=== PATIENT | male | born 1960 | race Caucasian/White ===

== ENCOUNTER → 2017-01-01 | Outpatient (CLI) | payer BC ==
[~2017-01-01] MED LIST: IOPAMIDOL (ISOVUE-300) 100 ML BTL IV ONE
--- NOTE | 2017-01-01 14:22 | CT ---
CT Scan of the Abdomen and Pelvis (With Contrast) Indication: Pain. Suspect perianal abscess. Technique: No oral or rectal contrast. 90 mL of Isovue 300 were given intravenously by machine power injection. Multidetector helical CT imaging was performed from the diaphragm to the symphysis pubis . Dose reduction techniques were utilized. Comparison: CT abdomen and pelvis dated October 14, 2015 Findings: The perianal low attenuation fluid collection with peripheral rim enhancement is draped acr oss the anterior aspect of the anal canal in a horseshoe configuration. The collection measures 4.5 c m medial to lateral x 1 cm AP x 2 cm craniocaudal. The locule has a similar configuration to the [place] heidi 2014 study. No collection along the posterosuperior aspect of the anal canal as on the prior luca dy. Several tiny subcutaneous gas bubbles are present in the left paramedian fascial fat inferior to the collection. The collection resides approximately 3 cm deep to the skin and the gas bubbles extend to 2 cm deep to the skin. A catheter is situated within the urinary bladder. The prostate gland is normal size. No intraprostat ic fluid collection. No free fluid, mesenteric edema, intraperitoneal collection or mass. Bowel pattern is normal, with the exception of scattered diverticula throughout the descending and si gmoid colon and right-sided constipation. The appendix is normal. The liver, spleen, pancreas, gallbladder, adrenal glands, and kidneys are normal. No nephrolithiasis or hydroureteronephrosis. Lung bases are clear. Benign linear atelectasis in the lingula is new. The abdominal aorta is normal caliber with minimal calcified plaque. Fusion hardware in the low lumbar spine extending from L3 to L 4 is new since 2014, and is well seated. Impression: 1. Small perianal fluid collection, likely abscess. The collection is smaller than on the October 13 evaluation. 2. No intraperitoneal abscess or inflammatory process. 3. Diverticulosis of the sigmoid colon. No evidence of enteritis. Comment: Results were discussed with Dr. Joan Kennedy shortly after study completion.
== END ==
LOC: FIMAGING 12:39
PROVIDERS: ATTEND Surgery
DX: K62.89 Other specified diseases of anus and rectum (principal); K57.30 Diverticulosis of large intestine without perforation or abscess without bleeding
CPT/HCPCS: Q9967

== ENCOUNTER 2017-05-13 05:30 | Day surgery (SDC) | payer BC ==
[2017-05-13] MEDS ORDERED: LIDOCAINE 1% 2 ML INJ ID PRN (05:42)
[2017-05-13] MEDS ORDERED: LR 1,000 ML IV ONE (05:42)
[2017-05-13] MEDS ORDERED: METHYLENE BLUE 0.5% 50 MG/10 ML AMP ONE (06:42)
[2017-05-13] MEDS ORDERED: BUPIVACAINE/EPI 0.5% 30 ML SDV ONE (06:42)
[2017-05-13] MEDS ORDERED: MIDAZOLAM 2 MG/2 ML VIAL IVP ONE (06:52)
--- NOTE | 2017-05-13 06:55 | PDANEPAE ---
ANE History of Present Illness 56 year old male with JARRED on CPAP and 2 L O2 nightly. Denies any issues with heart, hypertension, asthma, diabetes, or thyroid. ANE Past Medical History - Cardiovascular History Hx Hypertension: No Hx Arrhythmias: No Hx Chest Pain: No Hx Coronary Artery / Peripheral Vascular Disease: No Hx CHF / Valvular Disease: No Hx Palpitations: No - Pulmonary History Hx COPD: No Hx Asthma/Reactive Airway Disease: No Hx Recent Upper Respiratory Infection: No Hx Oxygen in Use at Home: Yes - Neurologic History Hx Cerebrovascular Accident: No Hx Seizures: No Hx Dementia: No - Endocrine History Hx Diabetes: No - Renal History Hx Renal Disorders: Yes - Liver History Hx Hepatic Disorders: No - Neurological & Psychiatric Hx Hx Neurological and Psychiatric Disorders: No - Cancer History Hx Cancer: No - Congenital Disorder History Hx Congenital Disorders: No - GI History Hx Gastrointestinal Disorders: No - Chronic Pain History Chronic Pain: Yes (RECTAL) ANE Review of Systems - Exercise capacity METS (RN): 6 METS ANE Patient History - Allergies Allergies/Adverse Reactions: No Known Allergies Allergy (Unverified 10/14/15 14:42) - Home Medications Home Medications: Tamsulosin HCl DAILY06 10/14/15 [Last Taken Unknown] Tylenol PO PRN 10/14/15 [Last Taken Unknown] Lumigan 0.01% (*) HS 05/02/17 [Last Taken Unknown] - NPO status NPO Since - Liquids (Date): 05/12/17 NPO Since - Liquids (Time): 20:00 NPO Since - Solids (Date): 05/12/17 NPO Since - Solids (Time): 20:00 - Smoking Hx Smoking Status: Never smoked ANE Labs/Vital Signs - Vital Signs Blood Pressure: 117/83 Heart Rate: 73 Respiratory Rate: 16 O2 Sat (%): 92 Height: 177.8 cm Weight: 92.986 kg ANE Physical Exam - Airway Neck exam: FROM Mallampati Score: Class 1 Mouth exam: normal dental/mouth exam - Pulmonary Pulmonary: no respiratory distress - Cardiovascular Cardiovascular: regular rate and rhythym - ASA Status ASA Status: II ANE Anesthesia Plan Urgent/Emergent Case: Modesta wu completed preop but documented later for safe timely pt care
[2017-05-13] MEDS ORDERED: SCOPOLAMINE HYDROBROMIDE 1.5 MG PATCH TD SCH (07:00)
[2017-05-13] MEDS ORDERED: ROCURONIUM 50 MG/5 ML VIAL ONE (07:00)
[2017-05-13] MEDS ORDERED: PROPOFOL 200 MG/20 ML VIAL ONE (07:00)
[2017-05-13] MEDS ORDERED: fentaNYL 100 MCG/2 ML INJ ONE (07:01)
[2017-05-13] MEDS ORDERED: SCOPOLAMINE HYDROBROMIDE 1.5 MG PATCH TD ONE (07:02)
[2017-05-13] MEDS ORDERED: KETAMINE 100 MG/10 ML SYR ONE (07:17)
[2017-05-13] MEDS ORDERED: PROPOFOL/EMULSION 500 MG/50 ML BOTTLE IV ONE (07:17)
[2017-05-13] MEDS ORDERED: cefOXitin SODIUM 2 GM in D5W 100 ML IV ONE (07:20)
--- NOTE | 2017-05-13 07:21 | PDHPUP ---
History & Physical Update H&P update statement: This history and physical update is based on an assessment of the patient which was completed after admission or registration (within 24 hours), but prior to the surgery/procedure. H&P update: H&P reviewed & patient examined, no change in patient's condition since H&P completed
[2017-05-13] MEDS ORDERED: LIDOCAINE 1% 300 MG/30 ML SDV ONE (07:56)
[2017-05-13] MEDS ORDERED: NALOXONE HCL 0.4 MG/ML INJ IVP PRN (08:13)
[2017-05-13] MEDS ORDERED: MEPERIDINE 25 MG/ML SYR IVP PRN (08:13)
[2017-05-13] MEDS ORDERED: LR 500 ML IV PRN (08:13)
[2017-05-13] MEDS ORDERED: ONDANSETRON 4 MG/2 ML VIAL IVP PRN (08:13)
[2017-05-13] MEDS ORDERED: OXYCODONE/APAP 5/325 TAB PO PRN (08:13)
[2017-05-13] MEDS ORDERED: DEXAMETHASONE 4 MG/ML VIAL IVP PRN (08:13)
[2017-05-13] MEDS ORDERED: HYDROmorphONE/DILAUDID 1 MG/ML SYR IVP PRN (08:13)
[2017-05-13] MEDS ORDERED: fentaNYL 100 MCG/2 ML INJ IVP PRN (08:13)
--- NOTE | 2017-05-13 08:49 | POSTANESTH ---
Post Anesthetic Evaluation Cardiovascular Status: Normal, Stable Respiratory Status: Normal, Stable Level of Consciousness/Mental Status: Can Participate in Eval Pain Control: Adequate, Prn Tx Ordered Nausea/Vomiting Control: Adequate, Prn Tx Ordered Complications Possibly Related to Anesthesia: None Noted
--- NOTE | 2017-05-13 08:50 | POSTOPPROG ---
Post Op Note Date of Operation: 05/13/17 Surgeon: Pepito Saldana Anesthesiologist: Dr. Ayoub Anesthesia: IV Sedation Pre-op Diagnosis: Recurrent perianal abscess Post-op Diagnosis: same Procedure: REUA, debridement Findings: No fistula identified Inf/Abcess present in the surg proc area at time of surgery?: Yes Depth: Superfical (Skin SQ) EBL: Minimal
[2017-05-13 10:01] VITALS: RESP 16; TEMP 98.1; O2SAT 94
[2017-05-13 10:25] VITALS: BP 118/79; PULSE 57
--- NOTE | 2017-05-13 14:46 | GOP ---
[f rep st] OPERATIVE REPORT DATE OF OPERATION: 05/13/2017 SURGEON: Jace Saldana MD ANESTHESIA: Monitored anesthetic care. ANESTHESIOLOGIST: Dr. Grewal. PREOPERATIVE DIAGNOSIS: Recurrent perianal abscess. POSTOPERATIVE DIAGNOSIS: Recurrent perianal abscess. PROCEDURE PERFORMED: 1. Rectal exam under anesthesia. 2. Debridement of abscess cavity. FINDINGS: No fistula tract was identified. There was a significant amount of fibrinous and granula ting tissue in the left anterior aspect of the perianal area. ESTIMATED BLOOD LOSS: 20 cc. INDICATIONS: This is a 56-year-old male with a history of recurrent perianal abscess. Risks and be nefits of the procedure were discussed with the patient and his family, their questions were answere d, they wished to proceed. DESCRIPTION OF PROCEDURE: Patient was in the supine position initially. After induction of adequat e IV sedation, the patient was moved to the modified lithotomy position and then prepped and draped in standard surgical fashion. Digital rectal exam was performed and the anus was then serially dila dalton. Endoscope was placed and the anus and distal rectum were inspected. There were multiple tags, but no opening for fistula tract was identified. Next, the area of the recurrent abscess was palpa dalton in the left anterior aspect of the perianal area. There was some firmness in this area but, aga in, no tract was identified. The area was then anesthetized with 1% lidocaine and 0.5% Marcaine. A n elliptical incision was made with a #15 blade and carried down to subcutaneous tissue with a sharp dissection. The area was palpated and lacrimal duct probe used to gently probe the area. Once aga in, no fistula tract was identified. There was, however, a significant amount of fibrinous and gran ulated tissue. This was excised sharply. The area was again palpated and found to be without furth er lesions. The area was thoroughly irrigated and aspirated. Hemostasis was achieved with cautery. Decision was made to leave the incision open due to the history of infection. It was, therefore, packed. Sterile dressing was applied over this. The patient was then returned to a supine position and taken to PACU in stable condition. COMPLICATIONS: None. DRAINS: Include packing. /[id number]/MODL
[2017-05-14] MEDS ORDERED: PATCH REMOVAL 1 EA PATCH TD ONE (06:52)
== END 2017-05-13 10:25 | disposition home or self-care (01) ==
LOC: FSGY 05:30
PROVIDERS: ATTEND Surgery
PROC: 0D9Q0ZZ Drainage of Anus, Open Approach (ICD-10-PCS; principal; 2017-05-13 07:30)
PROC: 0DJD8ZZ Inspection of Lower Intestinal Tract, Via Natural or Artificial Opening Endoscopic (ICD-10-PCS; principal; 2017-05-13 07:30)
DX: K61.0 Anal abscess (principal); G47.33 Obstructive sleep apnea (adult) (pediatric)
CPT/HCPCS: J0694; J2250; J2704; J3010; Q9968

== ENCOUNTER → 2018-03-03 | Outpatient (CLI) | payer BC | LOC: FIMAGING 15:28 | PROVIDERS: ATTEND Surgery | DX: K61.0 Anal abscess (principal) ==

== ENCOUNTER 2018-09-25 17:24 | Day surgery (SDC) | payer BC ==
[2018-09-25] MEDS ORDERED: LR 1,000 ML IV ONE (17:34)
[2018-09-25] MEDS ORDERED: LIDOCAINE 1% 2 ML INJ ID PRN (17:34)
[2018-09-25] MEDS ORDERED: MIDAZOLAM 2 MG/2 ML VIAL IVP ONE (20:43)
--- NOTE | 2018-09-25 20:45 | PDANEPAE ---
ANE History of Present Illness perirectal abscess ANE Past Medical History - Cardiovascular History Hx Hypertension: No Hx Arrhythmias: No Hx Chest Pain: No Hx Coronary Artery / Peripheral Vascular Disease: No Hx CHF / Valvular Disease: No Hx Palpitations: No - Pulmonary History Hx COPD: No Hx Asthma/Reactive Airway Disease: No Hx Recent Upper Respiratory Infection: No Hx Oxygen in Use at Home: Yes Hx Sleep Apnea: Yes Sleep Apnea Screening Result - Last Documented: Positive Pulmonary History Comment: JARRED USES C-PAP INSTRUCTED TO BRING DOS - Neurologic History Hx Cerebrovascular Accident: No Hx Seizures: No Hx Dementia: No - Endocrine History Hx Diabetes: No - Renal History Hx Renal Disorders: Yes Renal History Comment: NOCTURIA. BPH - Liver History Hx Hepatic Disorders: No - Neurological & Psychiatric Hx Hx Neurological and Psychiatric Disorders: No - Cancer History Hx Cancer: Yes Cancer History Comment: new diagnosis of prostate CA. not treated at this time. - Congenital Disorder History Hx Congenital Disorders: No - GI History Hx Gastrointestinal Disorders: No Gastrointestinal History Comment: ADIEL RECTAL ABCESS X3 OVER THE PAST YEAR LAST 03/2017. Anal fissure 10 yrs ago. - Other Health History Other Health History: GLAUCOMA - Chronic Pain History Chronic Pain: Yes (RECTAL) - Surgical History Prior Surgeries: Previous perirectal abcess I&D. LUMBAR FUSION 03/2016. RT RTC 2014. Tonsillectomy as a child ANE Review of Systems Review of systems is: negative Review of Systems: - Exercise capacity METS (RN): 4 METS ANE Patient History - Allergies Allergies/Adverse Reactions: No Known Allergies Allergy (Unverified 10/14/15 14:42) - Home Medications Home medications: home medication list seen and reviewed Home Medications: Tamsulosin HCl DAILY06 10/14/15 [Last Taken 09/25/18] Tylenol PO PRN 10/14/15 [Last Taken 09/25/18] Lumigan 0.01% (*) HS 05/02/17 [Last Taken 09/24/18] Gabapentin 09/25/18 [Last Taken 09/25/18] - NPO status NPO Status: no food or drink >8 hours NPO Since - Liquids (Date): 09/25/18 NPO Since - Liquids (Time): 12:00 NPO Since - Solids (Date): 09/25/18 NPO Since - Solids (Time): 12:00 - Anes Hx Anes Hx: no prior problems - Smoking Hx Smoking Status: Never smoked - Family Anes Hx Family Anes Hx: none Family Hx Anesthesia Complications: NA ANE Labs/Vital Signs - Vital Signs Vital Signs: reviewed preoperatively; see RN documention for details Blood Pressure: 140/98 Heart Rate: 80 Respiratory Rate: 15 O2 Sat (%): 93 Height: 177.8 cm Weight: 95.254 kg ANE Physical Exam - Airway Neck exam: FROM Mallampati Score: Class 1 Mouth exam: normal dental/mouth exam - Pulmonary Pulmonary: no respiratory distress - Cardiovascular Cardiovascular: regular rate and rhythym - ASA Status ASA Status: II ANE Anesthesia Plan Anesthesia Plan: general endotracheal anesthesia
[2018-09-25] MEDS ORDERED: MIDAZOLAM 2 MG/2 ML VIAL ONE (20:46)
[2018-09-25] MEDS ORDERED: fentaNYL 100 MCG/2 ML INJ ONE (20:50)
[2018-09-25] MEDS ORDERED: ROCURONIUM 50 MG/5 ML VIAL ONE (20:50)
[2018-09-25] MEDS ORDERED: DEXAMETHASONE 4 MG/ML VIAL ONE (20:50)
[2018-09-25] MEDS ORDERED: PROPOFOL 200 MG/20 ML VIAL ONE (20:50)
[2018-09-25] MEDS ORDERED: ONDANSETRON 4 MG/2 ML VIAL ONE (20:50)
[2018-09-25] MEDS ORDERED: LIDOCAINE 2% 100 MG/5 ML SYR ONE (20:50)
[2018-09-25] MEDS ORDERED: SUGAMMADEX SODIUM 200 MG/2 ML VIAL IVP ONE (21:38)
[2018-09-25] MEDS ORDERED: KETOROLAC 30 MG/1 ML SDV ONE (21:40)
--- NOTE | 2018-09-25 21:51 | POSTOPPROG ---
Post Op Note Date of Operation: 09/25/18 Surgeon: Pepito Saldana Anesthesiologist: Dr. Burgess Anesthesia: GET(General Endotracheal) Pre-op Diagnosis: Perirectal abscess Post-op Diagnosis: same Procedure: I&D Inf/Abcess present in the surg proc area at time of surgery?: Yes Depth: Deep Incisional (Fascial) EBL: Minimal
[2018-09-25] MEDS ORDERED: ONDANSETRON 4 MG/2 ML VIAL IVP PRN (22:01)
[2018-09-25] MEDS ORDERED: oxyCODONE IR 5 MG TAB PO PRN (22:01)
[2018-09-25] MEDS ORDERED: DEXAMETHASONE 4 MG/ML VIAL IVP PRN (22:01)
[2018-09-25] MEDS ORDERED: HYDROmorphONE/DILAUDID 2 MG/ML INJ IVP PRN (22:01)
[2018-09-25] MEDS ORDERED: PROMETHAZINE HCL 25 MG/ML INJ IVP PRN (22:01)
[2018-09-25] MEDS ORDERED: MEPERIDINE 25 MG/0.5 ML AMP IVP PRN (22:01)
[2018-09-25] MEDS ORDERED: fentaNYL 100 MCG/2 ML INJ IVP PRN (22:01)
[2018-09-25] MEDS ORDERED: HYDROCODONE/APAP 5/325 TAB PO PRN (22:01)
[2018-09-25] MEDS ORDERED: ACETAMINOPHEN 500 MG TAB PO PRN (22:01)
[2018-09-25] MEDS ORDERED: NALOXONE HCL 0.4 MG/ML INJ IVP PRN (22:01)
--- NOTE | 2018-09-25 22:02 | POSTANESTH ---
Post Anesthetic Evaluation Cardiovascular Status: Normal, Stable, Similar to Pre-Op Cond Respiratory Status: Similar to Pre-op Cond. Level of Consciousness/Mental Status: Can Participate in Eval, Alert and Oriented Pain Control: Adequate, Prn Tx Ordered Nausea/Vomiting Control: Adequate, Prn Tx Ordered Complications Possibly Related to Anesthesia: None Noted
[2018-09-25] MEDS ORDERED: HYDROCODONE/APAP 5/325 TAB ONE (22:12)
[2018-09-25 22:52] VITALS: BP 129/84
--- NOTE | 2018-09-27 03:12 | GOP ---
DATE OF OPERATION: 09/25/2018 SURGEON: Jace Saldana MD ANESTHESIA: General endotracheal anesthesia. ANESTHESIOLOGIST: Dr. Burgess. PREOPERATIVE DIAGNOSIS: Perirectal abscess. POSTOPERATIVE DIAGNOSIS: Perirectal abscess. PROCEDURE PERFORMED: 1. Rectal exam under anesthesia. 2. Incision and drainage of perirectal abscess. FINDINGS: The patient had a 1.5 to 2 cm abscess in the anterior perirectal area. No evidence of fis mercedes was identified. No foreign body was identified. ESTIMATED BLOOD LOSS: 20 cc. INDICATIONS: This is a 58-year-old male with a history of recurrent perirectal abscess. Risks and b enefits of the procedure discussed with the patient's family, their questions were answered. They wi shed to proceed. DESCRIPTION OF PROCEDURE: Patient in the supine position initially. After induction of adequate gen eral endotracheal anesthesia, the patient was moved to the modified lithotomy position. He was then prepped and draped in standard surgical fashion. Digital rectal exam was performed. The anus was se rially dilated. An anoscope was placed, and the area of the anus and distal rectum carefully examine d. No evidence of fistula or other lesions was identified. Of note, patient did have some posterior hemorrhoids. The abscess was palpated in the anterior wall of the anus and rectum; 0.5% Marcaine wa s injected throughout the skin over the anterior area of the anus. An elliptical incision was made w ith #15 blade and carried down to the subcutaneous tissue with Bovie cautery and blunt dissection. T he abscess cavity was entered sharply. Loculations were then broken down bluntly. The area was thor oughly irrigated and aspirated. Hemostasis was achieved with cautery. No other lesions were identif ied. Once good hemostasis noted, the area was packed with gauze. The area was then dressed, and the patient returned to the supine position and extubated. He was then taken to PACU in stable conditio n. COMPLICATIONS: None. DRAINS: Include packing. /[id number]/MODL
== END 2018-09-25 22:43 | disposition home or self-care (01) ==
LOC: FSGY 17:24
PROVIDERS: ATTEND Surgery
PROC: 0D9P0ZZ Drainage of Rectum, Open Approach (ICD-10-PCS; principal; 2018-09-25 20:45)
DX: K61.1 Rectal abscess (principal); K64.8 Other hemorrhoids; G47.33 Obstructive sleep apnea (adult) (pediatric); N40.0 Benign prostatic hyperplasia without lower urinary tract symptoms; Z98.1 Arthrodesis status
CPT/HCPCS: J1100; J1885; J2001; J2250; J2405; J2704; J3010